=== PATIENT | male | born 1955 | race Asian ===

== ENCOUNTER → 2017-08-23 | Day surgery (SDC) | payer OTHER ==
[~2017-08-23] MED LIST: ALLOPURINOL100 MG PO; FENOFIBRATE PO; FENTANYL CITRATE/PF 100MCG/2 ML INJ ONE; LIDOCAINE HCL 2% LOCAL INJ 5 ML SDV VIAL INJ ONE; METFORMIN HCL1000 MG PO; MIDAZOLAM HCL 2 MG/2 ML VIAL ONE; PROPOFOL IV EMULSION 10 MG/ML 20 ML VIAL ONE; SIMVASTATIN40 MG PO
--- NOTE | 2017-08-23 17:00 | Operative Report ---
DATE OF PROCEDURE: August 23, 2017 PROCEDURE: Esophagogastroduodenoscopy and colonoscopy. The patient is here for colon cancer screening and also for dyspepsia. PROCEDURE: After informed written consent, premedication with monitored anesthesia care, the standard oral video Olympus gastroscope was introduced into the mouth, esophagus, stomach, and into the second portion of the duodenum. The first and second portion of the duodenum appeared to be normal. The antrum showed some gastritis and biopsies were done. The body and fundus appeared to be normal. Retroflexion revealed a small hiatal hernia. The GE junction appeared to be normal, but there was island of what appeared to be possible Pittman's esophagus in the lower esophagus, which was biopsied. The rest of the esophagus was normal. Colonoscopy: The standard video Olympus colonoscope was introduced into the rectum and all the way into the terminal ileum. The prep was adequate. The terminal ileum, ileocecal valve, cecum, ascending, descending, sigmoid, transverse and rectum all appeared to be normal. IMPRESSION 1. Normal colonoscopy. 2. Hiatal hernia. 3. Gastritis. 4. Rule out short segment Pittman's esophagus. RECOMMENDATIONS: GERD precautions. Repeat colonoscopy in 10 years. Follow up in the office in 3-4 weeks to discuss the findings. Job#: [id number] cc:JAKE TRISTAN MD
== END | disposition home or self-care (01) ==
LOC: OR 12:38
PROVIDERS: ATTEND Internal Medicine Gastroenterology
DX: K29.70 Gastritis, unspecified, without bleeding (principal); K21.0 Gastro-esophageal reflux disease with esophagitis; K44.9 Diaphragmatic hernia without obstruction or gangrene; E11.9 Type 2 diabetes mellitus without complications; M10.9 Gout, unspecified; Z01.810 Encounter for preprocedural cardiovascular examination
CPT/HCPCS: 36415; 43239; 45378; 82948; 88305; 93005; J2001; J2250; 88312